=== PATIENT | female | born 1930 | race Caucasian/White ===

== ENCOUNTER → 2020-10-04 | Outpatient (REF) | payer MEDICARE ==
[~2020-10-04] MED LIST: ASPI1TAB PO; CYCL5TAB PO; FENO54TA2 PO; MAPA500T17 PO; MULTTAB4 PO; PROAAER INH; SIMV20TA2 PO; SYNT75TA PO; VALS160T PO; VENL-142 PO; VERA240C PO
== END ==
LOC: M LAB REF 09:26
PROVIDERS: ATTEND Dermatology
DX: D23.39 Other benign neoplasm of skin of other parts of face (principal)